=== PATIENT | female | born 1940 | race Caucasian/White ===

== ENCOUNTER 2022-11-29 10:59 | Outpatient (CLI) | payer MEDICARE, SELFPAY ==
--- NOTE | 2022-11-29 11:15 | CRLHL7_ITS ---
For Patients: As a result of the Century Cures Act, medical imaging exams and procedure reports are released immediately into your electronic medical record. You may view this report before your referring provider. If you have questions, please contact your health care provider. Technique: Double-contrast esophagram performed after the uneventful administration of effervescent crystals and thick barium followed by thin barium. Fluoroscopy time 1 minute 26 seconds. Indication: HIATAL HERNIA, GASTROESOPHAGEAL REFLUX Comparison: None. Findings: Spontaneous reflux occurred to the proximal esophagus. No stricture or ulcer. No laryngeal aspiration. Mucosal irregularity is present within the mid and distal esophagus. A sliding hernia is noted measuring 3.3 cm. Abnormal esophageal motility with delayed clearance. Impression: Sliding hiatal hernia with spontaneous reflux and reflux esophagitis throughout the mid and distal esophagus. Associated delayed esophageal motility. Consider EGD for further evaluation. Dictated by Bruce Moreno MD @ 11/29/2022 11:57:31 AM (Electronically Signed)
== END 2022-11-29 11:00 | disposition home or self-care (01) ==
LOC: RAD 11:00
PROVIDERS: PCP Internal Medicine; Visit Provider Specialist
DX: K44.9 Diaphragmatic hernia without obstruction or gangrene (principal); K21.9 Gastro-esophageal reflux disease without esophagitis
CPT/HCPCS: 74221

== ENCOUNTER 2024-08-28 13:00 | Outpatient (RCR) | payer MEDICARE, SELFPAY | END 2024-09-17 13:46 | disposition home or self-care (01) | PROVIDERS: PCP Internal Medicine; Referring Provider Dentist General Practice; Visit Provider Internal Medicine | DX: M26.609 Unspecified temporomandibular joint disorder, unspecified side (principal); R68.84 Jaw pain; Z51.89 Encounter for other specified aftercare | CPT/HCPCS: 97110; 97140; 97161 ==